=== PATIENT | female | born 1990 | race African-American/Black ===

== ENCOUNTER 2020-04-08 00:33 | Observation (INO) | payer MEDICAID ==
[~2020-04-08] VITALS: Ht 167.6 cm; Wt 129.3 kg
[2020-04-08] MEDS ORDERED: PREN-176 PO (01:02)
[2020-04-08] MEDS ORDERED: FERR-71 MT (01:02)
[2020-04-08] MEDS ORDERED: ACETAMINOPHEN 500MG TABLET PO NR (01:45)
== END 2020-04-08 03:30 | disposition home or self-care (01) ==
LOC: 8 EST LDRP 00:33
PROVIDERS: ADMIT Obstetrics & Gynecology; ATTEND Obstetrics & Gynecology
DX: O9A.213 Injury, poisoning and certain other consequences of external causes complicating pregnancy, third trimester (principal); O36.8130 Decreased fetal movements, third trimester, not applicable or unspecified; O26.893 Other specified pregnancy related conditions, third trimester; R10.31 Right lower quadrant pain; M54.5 Low back pain; Z3A.35 35 weeks gestation of pregnancy
CPT/HCPCS: 76815; 76818; 99281; G0378

== ENCOUNTER 2020-05-15 16:45 | Observation (INO) | payer MEDICAID ==
[~2020-05-15] VITALS: Ht 167.6 cm; Wt 130.6 kg
[~2020-05-15 16:45] MED LIST: FERR-71 MT; PREN-176 PO
== END 2020-05-15 18:00 | disposition home or self-care (01) ==
LOC: 8 EST LDRP 16:45
PROVIDERS: ADMIT Specialist; ATTEND Specialist
DX: O62.9 Abnormality of forces of labor, unspecified (principal); Z3A.41 41 weeks gestation of pregnancy
CPT/HCPCS: 99281; G0378

== ENCOUNTER 2020-05-16 23:06 | Inpatient (IN) | payer MEDICAID ==
[~2020-05-16] VITALS: Ht 167.6 cm; Wt 131.5 kg
[2020-05-16] MEDS ORDERED: DEXT 5%/LR + PITOCIN 20UNITS/L 1,000 ML IV SCH (23:25)
[2020-05-16] MEDS ORDERED: BUTORPHANOL TARTRATE 2 MG/ML VIAL IV PRN (23:30)
[2020-05-16] MEDS ORDERED: RHO(D) IMMUNE GLOBULIN 300 MCG/SYR IM ONE (23:30)
[2020-05-16] MEDS ORDERED: MINERAL OIL 30ML BOTTLE PR NR (23:30)
[2020-05-16] MEDS ORDERED: PENICILLIN G POTASSIUM 5 MMU in DEXT 5% WATER 100 ML IV SCH (23:30)
[2020-05-16] MEDS ORDERED: LIDOCAINE HCL 1% 20ML VIAL (Pyxis) INJ INFIL SCH (23:30)
[2020-05-16] MEDS ORDERED: METHYLERGONOVINE MALEATE 0.2 MG/ML IM PRN (23:30)
[2020-05-16] MEDS ORDERED: NALOXONE HCL 0.4 MG/ML 1ML VIAL IM PRN (23:30)
[2020-05-16] MEDS: LACTATED RINGERS 1,000 ML IV SCH (23:41)
[2020-05-17] MEDS ORDERED: CLINDAMYCIN 900 MG in DEXTROSE 5% WATER 50 ML IV SCH ×2
[2020-05-17] MEDS: LACTATED RINGERS 1,000 ML IV SCH (00:25)
[2020-05-17 00:34] LABS: BASOPHILS % 0.5 % (0.0-2.0); EOSINOPHILS % 3.2 % (0.0-5.0); HEMATOCRIT. 30.4 % (36.0-48.0); HEMOGLOBIN. 10.2 g/dL (12.0-16.0); LYMPHOCYTES % 18.9 % (20.0-50.0); MEAN CORPUSCULAR HEMOGLOBIN 27.7 pg (28.0-32.0); MEAN CORPUSCULAR VOLUME 82.6 fL (81.0-99.0); MEAN PLATELET VOLUME 8.7 fl (7.4-10.4); MONOCYTES % 9.7 % (2.0-8.0); NEUTROPHILS % 67.7 % (40.0-76.0); PLATELET 424 x1000/uL (130-400); RED BLOOD CELL COUNT 3.68 mill/uL (4.2-5.4); RED CELL DISTRIBUTION WIDTH 16.3 % (11.6-14.6)
[2020-05-17 00:39] LABS: CLARITY URINE CLEAR (CLEAR); COLOR URINE YELLOW (YELLOW); KETONES URINE NEGATIVE (NEGATIVE); LEUKOCYTE ESTERASE URINE 2+ (NEGATIVE); NITRITE URINE NEGATIVE (NEGATIVE); OCCULT BLOOD URINE NEGATIVE (NEGATIVE); PH URINE 5.5 (4.5-8.0); PROTEIN URINE NEGATIVE (NEGATIVE); SPECIFIC GRAVITY URINE 1.019 (1.005-1.030)
[2020-05-17 00:46] LABS: INR 0.9; PARTIAL THROMBOPLASTIN TIME 29.8 sec (23.4-31.0); PROTHROMBIN TIME 9.7 sec (9.6-11.0)
[2020-05-17 00:55] LABS: *AMPHETAMINES SCREEN URINE NEGATIVE (NEGATIVE); *BARBITURATES SCREEN URINE NEGATIVE (NEGATIVE); *BENZODIAZEPINES SCREEN URINE NEGATIVE (NEGATIVE); *COCAINE SCREEN URINE NEGATIVE (NEGATIVE)
[2020-05-17 00:56] LABS: CANNABINOID URINE SCREEN NEGATIVE (NEGATIVE); METHADONE URINE SCREEN NEGATIVE (NEGATIVE); OPIATES URINE SCREEN NEGATIVE (NEGATIVE); PHENCYCLIDINE URINE SCREEN NEGATIVE (NEGATIVE)
[2020-05-17] MEDS ORDERED: FENTANYL CITRATE/PF 50MCG/ML 2ML VIAL ONE (01:52)
[2020-05-17] MEDS ORDERED: DEXT 5%/LR + PITOCIN 20UNITS/L 1,000 ML IV SCH (02:20)
[2020-05-17] MEDS ORDERED: RHO(D) IMMUNE GLOBULIN 300 MCG/SYR IM PRN (02:30)
[2020-05-17] MEDS ORDERED: LANOLIN OINT 7GM TUBE TOP PRN (02:30)
[2020-05-17] MEDS ORDERED: IBUPROFEN 400MG TABLET PO PRN (02:30)
[2020-05-17] MEDS ORDERED: DIPHENHYDRAMINE 25MG CAPSULE PO PRN (02:30)
[2020-05-17 04:10] VITALS: BP 130/66
[2020-05-17] MEDS: IBUPROFEN 800MG TABLET PO PRN ×3 (04:31→23:53)
[2020-05-17] MEDS ORDERED: ACETAMINOPHEN WITH CODEINE 300/30MG TABLET PO PRN (07:00)
[2020-05-17 08:00] VITALS: BP 131/83
[2020-05-17] MEDS: PRENATAL VIT/FE FUMARATE/FA TABLET PO SCH (14:35)
[2020-05-17 16:00] VITALS: BP 117/53
[2020-05-17 22:00] VITALS: BP 118/81
[2020-05-17] MEDS ORDERED: METHYLERGONOVINE MALEATE 0.2 MG/ML IM PRN (23:31)
[2020-05-18 06:00] VITALS: BP 115/78
[2020-05-18] MEDS ORDERED: IBUP-2028 PO (07:04)
[2020-05-18 07:31] VITALS: BP 121/68
[2020-05-18] MEDS: IBUPROFEN 800MG TABLET PO PRN (08:26)
[2020-05-18] MEDS: PRENATAL VIT/FE FUMARATE/FA TABLET PO SCH (08:26)
[2020-05-18 08:36] LABS: BASOPHILS % 1.4 % (0.0-2.0); EOSINOPHILS % 3.6 % (0.0-5.0); HEMATOCRIT. 31.9 % (36.0-48.0); HEMOGLOBIN. 10.7 g/dL (12.0-16.0); LYMPHOCYTES % 20.9 % (20.0-50.0); MEAN CORPUSCULAR HEMOGLOBIN 27.6 pg (28.0-32.0); MEAN PLATELET VOLUME 8.4 fl (7.4-10.4); MONOCYTES % 8.2 % (2.0-8.0); NEUTROPHILS % 65.9 % (40.0-76.0); PLATELET 378 x1000/uL (130-400); RED BLOOD CELL COUNT 3.89 mill/uL (4.2-5.4); RED CELL DISTRIBUTION WIDTH 16.7 % (11.6-14.6)
[2020-05-18 20:18] LABS: HEPATITIS B SURFACE ANTIGEN NEGATIVE
== END 2020-05-18 12:30 | disposition home or self-care (01) | DRG 560 ==
LOC: 8 EST LDRP 23:06 → OBSVTOIN 23:06 → 8EST 05-17 04:00
PROVIDERS: ADMIT Obstetrics & Gynecology; ATTEND Obstetrics & Gynecology
PROC: 10E0XZZ Delivery of Products of Conception, External Approach (ICD-10-PCS; principal; 2020-05-16)
PROC: 3E0234Z Introduction of Serum, Toxoid and Vaccine into Muscle, Percutaneous Approach (ICD-10-PCS; 2020-05-16)
DX: O80 Encounter for full-term uncomplicated delivery (principal); Z29.13 Encounter for prophylactic Rho(D) immune globulin; Z37.0 Single live birth; Z3A.41 41 weeks gestation of pregnancy; Z79.899 Other long term (current) drug therapy; Z88.0 Allergy status to penicillin
CPT/HCPCS: 36415; 80305; 81003; 85025; 86592; 86703; 86762; 86850; 86900; 87340; 99281; J0595; J2590; J3010; J3490; J7060